=== PATIENT | female | born 1965 | race Caucasian/White ===

== ENCOUNTER 2017-03-17 23:33 | Inpatient (IN) | payer MEDICARE, MEDICAID ==
[~2017-03-17] VITALS: Ht 170.2 cm; Wt 86.0 kg
--- NOTE | ~2017-03-17 | HP ---
PATIENT'S NAME: SHARON HURTADO AGE: 51 Y [address] ROOM: [place] [address] LOCATION: GPCU ADMIT DATE: 03/18/2017 History & Physical DISCHARGE DATE: FAMILY PHYSICIAN: NENA VALIENTE ATTENDING PHYSICIAN: LLOYD JONES DATE OF SERVICE: CHIEF COMPLAINT: Diffuse abdominal pain, insomnia, nausea, runny nose, diaphoresis, insomnia, loose stool, and vomiting 3 days after stopped taking opioids. HISTORY OF PRESENT ILLNESS: This is a 51-year-old female, who has a long-term dependency on opioid and benzodiazepine, who says that last time she took her opioid, which is oxycodone/acid acetaminophen 7.5/325-mg tablet 3 times a day, and the last time she took it was this Tuesday, which was about 4 days ago. She ran out of the opioid at home at that time. She also chronically takes zolpidem 10 mg p.o. daily and also clonazepam 1 mg 3 times a day. Last time she took zolpidem was 2 days ago. The last time she took the clonazepam was 1 day ago. The story is that roughly for the last few days, the patient has been complaining of diffuse vague abdominal pain, insomnia, nauseous, runny nose, diaphoresis, and loose stools and today she started vomiting about 20 times per day according to the patient. The patient denies any fever, chills, chest pain, shortness of breath, or any other symptoms. Because of these symptoms, the patient went to outside facility for evaluation, which in return the patient was referred here for further care. REVIEW OF SYSTEMS: As mentioned in the history of present illness. All other systems were reviewed and were negative except those mentioned in the history of present illness. PAST MEDICAL HISTORY: The patient reported history of the followin. Crohn disease. 2. Ulcerative colitis. 3. Depression. 4. Anxiety. 5. PTSD. 6. Seizure. 7. History of ovarian cancer, status post chemotherapy and radiation. 8. History of right upper extremity DVT. PATIENT'S NAME: SHARON HURTADO AGE: 51 Y [address] ROOM: [place] [address] LOCATION: GPCU ADMIT DATE: 03/18/2017 History & Physical DISCHARGE DATE: FAMILY PHYSICIAN: PHYSICIAN, NO ATTENDING PHYSICIAN: LLOYD JONES 9. Reported history of Factor V Leiden mutation, but she is not on any blood thinner at home. 10. Reported history of myocardial infarction 3 times, the most recent one was back in April 2016. When questioned, the patient cannot really give a clear history about how did it happen and she denies ever having any cardiac catheterization and denies any stents, and when asked about how she was treated, she has no idea. ALLERGIES: ASPIRIN CAUSES GI UPSET, CINNAMON CAUSES RASH; LATEX CAUSES ANAPHYLAXIS, EXTENDED USE OF MORPHINE CAUSES HALLUCINATION, PENICILLIN UNKNOWN REACTION, SULFA ANTIBIOTICS CAUSES ANAPHYLAXIS, REMICADE CAUSES ANAPHYLAXIS, HUMIRA CAUSES GI UPSET, NSAID CAUSES GI UPSET. SOCIAL HISTORY: The patient is an active cigarette smoker of the electronic cigarette daily, unknown how much quantity, but she has been smoking for many years. She denies any alcohol or any illegal drug use. PAST SURGICAL HISTORY: 1. Cholecystectomy. 2. Tonsillectomy. 3. Tumor of the left shoulder removal in the past. 4. Tubal ligation. FAMILY HISTORY: Father from myocardial infarction at old age. Mother from ovarian cancer. PHYSICAL EXAMINATION: VITAL SIGNS: Temperature 98.5, heart rate 69, blood pressure 138/87, respirations 15, saturation 100% on room air. GENERAL APPEARANCE: The patient is alert and oriented x3, in no acute distress. HEENT: Pupils equally round and reactive to light. Extraocular muscles intact. Nasal turbinates are normal bilaterally. Moist oral mucosa. NECK: No JVD. CARDIOVASCULAR: Regular rate and rhythm. Normal S1, S2. No murmur. No rubs. No gallops. RESPIRATORY: Clear to auscultation. Chest wall nontender to palpation. ABDOMEN: Obese, soft, mildly tender diffusely to palpation. No abdominal rigidity. No mass. Bowel sounds are present. No ascites. EXTREMITIES: No edema in upper or lower extremities. SKIN: No ulcer. No rash. No cyanosis. NEUROLOGICAL: Grossly nonfocal. PATIENT'S NAME: SHARON HURTADO AGE: 51 Y [address] ROOM: [address] [address] LOCATION: GPCU ADMIT DATE: 03/18/2017 History & Physical DISCHARGE DATE: FAMILY PHYSICIAN: PHYSICIAN, NO ATTENDING PHYSICIAN: LLOYD JONES LABORATORY DATA: Lactic acid 1.8, white blood cells 11.3, hemoglobin 11.5, hematocrit 36.4, platelets 621, glucose 90, BUN 7, creatinine 1.7, sodium 141, potassium 4.1, chloride 111, CO2 of 21, calcium 8.7, total protein 7.8, albumin 2.9, AST 28, ALT 18, alkaline phosphatase 226, total bilirubin 0.2, anion gap 13.1, globulin 4.9, GFR 32, INR 1.01, PTT 34, CRP 1.4, procalcitonin less than 0.05. IMAGING STUDIES: CT of the abdomen and pelvis without contrast on admission based on the preliminary report showed moderate hiatal hernia and prior cholecystectomy. Normal bowel. Normal kidneys. No other acute or chronic abnormality. This is a preliminary report. EKG on admission on February 15, 2017, at 8:46 p.m. from the outside facility shows sinus rhythm, heart rate of 84 beats per minutes and QRS of 76 milliseconds, MN of 136 milliseconds, QTc of 453 milliseconds. No acute ischemic changes. ASSESSMENT AND PLAN: 1. Regarding her multiple symptoms including abdominal pain, insomnia, nausea, loose stool, runny nose, diaphoresis secondary to opioid withdrawal symptoms: The plan will be to treat her with opioid withdrawal protocol. Per up to date, we will be using p.o. methadone and IM phenergan p.r.n., p.o. Protonix, p.o. clonidine, IV fluids, and tapered dose of the p.o. methadone. In order to prevent benzodiazepine withdrawal, we will give her p.o. Valium standing dose with holding parameters. Eventually, the plan will be to taper the methadone and Valium back to her home regimen once she is over the period of the opioid withdrawal. Please follow up with the up-to-date regimen for the tapering regimen. Further plan will depend on clinical course. 2. Regarding her acute kidney injury: This is from the nausea and vomiting, and loose stool. We will treat her with p.o. loperamide p.r.n. and IV fluids. Encourage oral intake with cardiac diet. 3. Regarding her reported history of myocardial infarction and Factor V Leiden mutation: Story is not clear. The patient cannot give any details. The patient is not on any cardiac medication and also not on any medication for blood thinner. I highly doubt if this is accurate. The patient kept telling me that she takes niacin for blood thinner, which does not make sense to me. Patient does not remember who is her PCP. Currently, the patient denies any chest pain and there is no shortness of breath. EKG is also normal without any finding of acute or chronic ischemia. 4. Regarding her depression: Continue the home medication for depression. 5. Regarding her anxiety: Continue the Valium as mentioned before. PATIENT'S NAME: SHARON HURTADO AGE: 51 Y [address] ROOM: [place] [address] LOCATION: GPCU ADMIT DATE: 03/18/2017 History & Physical DISCHARGE DATE: FAMILY PHYSICIAN: PHYSICIAN, NO ATTENDING PHYSICIAN: LLYOD JONES 6. Regarding her reported history of Crohn's disease and ulcerative colitis: CT abdomen and pelvis did not show any inflammation of the colon. However, please follow up with official report in the morning. Further plan will depend on clinical course. 7. Regarding her hiatal hernia: We will start her on the Protonix 40 mg daily. 8. She is a full code. 9. DVT prophylaxis will be with subcu Lovenox. Time spent in care on the day of admission 60 minutes, where 40 minutes of the time was spent with the patient on counseling by going over the plan of care with the patient and addressing meaning of the question and concern that she had to her satisfaction. The remainder of the time was spent on interview and physical examination and also on chart review. Further plan will depend on clinical course. LLOYD JONES MD CC/modl /[id number] D: 8 T: HISTORY & PHYSICAL
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
--- NOTE | ~2017-03-17 | DS ---
PATIENT'S NAME: SHARON HURTADO [facility] AGE: 51 Y [address] ROOM: [id number] [place], [place] [address] LOCATION: GPCU ADMIT DATE: 03/18/2017 Discharge Summary DISCHARGE DATE: 03/23/2017 FAMILY PHYSICIAN: PHYSICIAN, NENA ATTENDING PHYSICIAN: Arcenio Gottlieb DISCHARGE DIAGNOSES: 1. Benzo/opiate withdrawal. 2. Posttraumatic stress disorder/anxiety/depression. 3. History of seizures. 4. Chronic abdominal pain. HOSPITAL COURSE: Please refer to admitting history and physical as dictated by Dr. Gottlieb. Briefly, the patient was admitted to [facility] with diffuse abdominal pain, insomnia, nausea, loose stools and vomiting 3 days after stopping her opioids. CT scan of her abdomen was performed upon admit, which showed a moderate-size hiatal hernia, surgically absent gallbladder, vascular calcifications at the abdominal aorta. No free air, with no findings of bowel obstruction. Due to her opiate withdrawal, she was placed on a methadone taper, which was completed prior to her discharge. Lovenox was used for DVT prophylaxis. She was continued on Tylenol for pain. Her home Klonopin dose was discontinued as well as her Zanaflex and Neurontin. She did have a right cheek facial lesion, which she was started on Bactroban ointment for. Psychiatry was asked to come and see her, given her diagnoses of PTSD, anxiety and depression. Dr. Galvin, did not see any reason to prescribe medications at this point. Due to her history of seizures and her taper of Klonopin, we did ask Neurology to see her. It is recommended that we continue to taper her Valium and she should follow up with a primary care provider. She continued to have pain throughout her stay. It was recommended that she continue Zofran as needed for her chronic abdominal pain and nausea. Her diarrhea had improved, she only had 2 stools during her hospitalization. On 03/23/2017, the patient's vital signs were stable. She was tolerating a regular diet. She was tapered off the methadone and continued on a Valium taper. It was recommended that she be seen by her primary care provider in 5 days. LABORATORY DATA: Sodium 141 to 144, potassium 3.6 to 4.1, calcium 7.9, BUN 7- 10, creatinine 1.7 on admit, 1.4 prior to discharge. AST 29, ALT 16, phos 4.6. GFR 32 on admit, 40 prior to discharge. Mag 1.7. CRP 1.44. Vitamin B12 549. Folate 3.5, TSH 2.730. WBCs 11.3 on admit, 10.5 prior to discharge. Hemoglobin 9.2 to 11.5, hematocrit 30.7 to 36.4, platelets 359. ESR 65. Procalcitonin less than 0.05. Urine leukocytes 25, nitrites negative, blood 10, bacteria few. PATIENT'S NAME: SHARON HURTADO [facility] AGE: 51 Y [address] ROOM: [place] [address] LOCATION: GPCU ADMIT DATE: 03/18/2017 Discharge Summary DISCHARGE DATE: 03/23/2017 FAMILY PHYSICIAN: NENA VALIENTE ATTENDING PHYSICIAN: Arcenio Gottlieb Radiology Reports: CT scan of the abdomen; please see hospital course. DISCHARGE INSTRUCTIONS: Diet: Regular. Activity: As tolerated. No driving until cleared. Followup Appointment: With primary care provider in 5 days. The patient requested an appointment at [facility], this was arranged with Dr. Blackwell, on Tuesday03/28/2017. ` DISCHARGE MEDICATIONS: 1. Valium 2.5 mg p.o. 3 times daily until 03/23/2017 at 2201 hours. Then Valium 2.5 mg p.o. twice daily for 2 days, then Valium 2.5 mg p.o. daily for 3 days, then stop. 2. Benadryl 50 mg p.o. daily p.r.n. 3. Cymbalta 120 mg p.o. daily p.r.n. 4. Bactroban to orbital lesion x7 days. 5. Nicotine patch 21 mg transdermal daily. 6. Trazodone 200 mg p.o. at bedtime. 7. Ambien 10 mg p.o. at bedtime p.r.n. insomnia. 8. Tylenol 1000 mg p.o. every 4 hours as needed for pain. 9. Zofran 8 mg p.o. q.8 hours p.r.n. nausea. 10. Imodium 2 mg p.o. as needed for diarrhea. 11. Zantac 150 mg p.o. daily. Thank you for allowing us to participate in the care of this patient as she has been hospitalized at [facility]. JAMES TALBERT APRN FOR MD LIDIA HUTSON/modl /[id number] CC: Roxanne Blackwell MD d: 03/25/17 0222 t: 03/29/17 1653, DISCHARGE SUMMARY
[2017-03-18] MEDS ORDERED: KLONOPIN1 MG PO (01:25)
[2017-03-18] MEDS ORDERED: CYMBALTA60 MG PO (01:26)
[2017-03-18] MEDS ORDERED: ZOFRAN8 MG PO (01:27)
[2017-03-18] MEDS ORDERED: PHENERGAN25 M1 PO (01:27)
[2017-03-18] MEDS ORDERED: DESYREL100 MG PO (01:28)
[2017-03-18] MEDS ORDERED: AMBIEN10 MG PO (01:30)
[2017-03-18] MEDS ORDERED: IMODIUM A-D2 M1 PO (01:31)
[2017-03-18] MEDS ORDERED: BENADRYL50 MG PO (01:32)
[2017-03-18] MEDS ORDERED: ZANAFLEX4 MG PO (01:32)
[2017-03-18] MEDS ORDERED: ZANTAC150 MG PO (01:33)
[2017-03-18] MEDS ORDERED: TYLENOL EXTRA500 MG PO (01:33)
[2017-03-18 01:54] LABS: BASOPHIL # 0.1 K/uL (0.0-0.2); BASOPHIL % 0.4 %; EOSINOPHIL % 0.2 %; HEMATOCRIT 36.4 % (33.0-46.0); HEMOGLOBIN 11.5 g/dL (10.0-15.0); IMMATURE GRANULOCYTE # 0.2 K/uL (0.0-0.3); IMMATURE GRANULOCYTE % 1.9 %; LYMPHOCYTE # 2.5 K/uL (0.8-4.0); MCH 24.7 pg (27.0-34.0); MCHC 31.6 gm/dL (32.0-36.5); MCV 78.1 fl (83.0-98.0); MONOCYTE # 0.8 K/uL (0.0-1.0); MONOCYTE % 7.2 %; MPV 9.8 fl (9.4-12.4); NEUTROPHIL # (ANC) 7.7 K/uL (1.8-7.8); NEUTROPHIL % 68.3 %; NRBC % 0 /100WBC (0-0.00); PLATELET COUNT 621 K/uL (150-450); RBC 4.66 M/uL (3.50-5.50); RDW-CV 19.3 % (11.9-14.6); WBC 11.3 K/uL (4.0-11.0)
[2017-03-18 02:04] LABS: INR - (THERAPEUTIC) 1.01 (0.92-1.07); PROTIME 10.6 SECONDS (9.8-11.4); PTT 34 SECONDS (25-32)
[2017-03-18 02:14] LABS: ALBUMIN 2.9 gm/dL (3.5-5.0); ALK PHOS 226 IU/L (33-138); ALT 18 IU/L (12-78); ANION GAP 13.1 (10.0-19.0); AST 28 IU/L (10-40); BLOOD UREA NITROGEN 7 mg/dL (6-24); CALCIUM 8.7 mg/dL (8.5-10.5); CHLORIDE 111 mMol/L (96-110); CO2 21 mMol/L (22-32); CREATININE 1.7 mg/dL (0.5-1.1); ESTIMATED GFR (MDRD EQUATION) 32; POTASSIUM 4.1 mMol/L (3.7-5.1); SODIUM 141 mMol/L (135-145); TOTAL BILIRUBIN 0.2 mg/dL (0.0-1.5); TOTAL PROTEIN 7.8 g/dL (6.0-8.4)
--- NOTE | 2017-03-18 04:27 | NUR ---
Patient arrived from [facility] via ambulance. Accompanied by spouse. Patient has been experiencing N/V and abdominal pain for a couple of days. Stated she has been "out of medications for a couple days". Patient also states she "failed pain contract with [facility] so they refered me here." The patient has an extensive health history. Depression, anxiety, PTSD, GERD, ulcerative colitsis, crohns, factor 5 with history of DVTs, and then some. Please refer to Data Base 1 for the entire list. She also is allergic to nsaids, sulfa, penicillins, cinnimon, and latex. Please refer to [employer] for more specific allergies. Full code. Her advanced directive is with her daughter in [place].
--- NOTE | 2017-03-18 04:39 | NUR ---
Significant Event: A&Ox3, VSS on room air. Patient complains of right lower quad abdominal pain and nausea. Rates pain as 7/10. Transfers with family assist/1PA to bathroom. Encouraged to use call light to have nurse help with transfers. Normal Saline at 100ml/hr into right hand IV with no complications. Patient ate jello and drinking tea without nausea/vomiting. Follow up: continue with plan of care
[2017-03-18 06:07] LABS: HEMATOCRIT 33.8 % (33.0-46.0); HEMOGLOBIN 10.6 g/dL (10.0-15.0); MCH 24.4 pg (27.0-34.0); MCHC 31.4 gm/dL (32.0-36.5); MCV 77.7 fl (83.0-98.0); MPV 9.7 fl (9.4-12.4); RBC 4.35 M/uL (3.50-5.50); RDW-CV 19.2 % (11.9-14.6)
[2017-03-18 06:34] LABS: ALBUMIN 2.6 gm/dL (3.5-5.0); ALK PHOS 204 IU/L (33-138); ALT 17 IU/L (12-78); ANION GAP 14.6 (10.0-19.0); AST 26 IU/L (10-40); BLOOD UREA NITROGEN 7 mg/dL (6-24); CALCIUM 8.5 mg/dL (8.5-10.5); CHLORIDE 109 mMol/L (96-110); CO2 22 mMol/L (22-32); CREATININE 1.6 mg/dL (0.5-1.1); ESTIMATED GFR (MDRD EQUATION) 34; POTASSIUM 3.6 mMol/L (3.7-5.1); SODIUM 142 mMol/L (135-145); TOTAL BILIRUBIN 0.2 mg/dL (0.0-1.5); TOTAL PROTEIN 7.1 g/dL (6.0-8.4)
[2017-03-18 07:36] LABS: BILIRUBIN URINE NEGATIVE (NEGATIVE); BLOOD URINE 10 /UL (NEGATIVE); COLOR URINE YELLOW (YELLOW); GLUCOSE URINE NEGATIVE (NEGATIVE); KETONE URINE 5 mg/dL (NEGATIVE); LEUKOCYTES URINE 25 /UL (NEGATIVE); NITRITE URINE NEGATIVE (NEGATIVE); PROTEIN URINE 15 mg/dL (NEGATIVE); TURBIDITY URINE 1+ (CLEAR); UROBILINOGEN URINE NORMAL (NORMAL)
[2017-03-18 07:46] LABS: BACTERIA URINE FEW (NEGATIVE); RBC URINE RARE #/HPF (NEGATIVE); WBC URINE RARE #/HPF (NEGATIVE)
[2017-03-18] MEDS ORDERED: NEURONTIN300 MG PO (10:21)
[2017-03-18] MEDS ORDERED: PERCOCET 7.5-31 EACH PO (10:22)
--- NOTE | 2017-03-18 11:30 | NUR ---
Introduced self and care management services to patient. Lives in [place] with significant other. Says he helps her at home. Denies concerns for me when I was in the room about going home on discharge or needing anything. Asked me to get her a patient compliment form so she could compliment nurses who care for her. Got her a speakup form and told her she can use that for compliments as well. Asks me to write my name on the form so she can compliment me. Told her that was very nice of her. About an hour later got a call from her telling me to come back to her room because she needed me to straighten out her meds. Asked her what she needed and she said she needs nausea medicine. Told her she needs to talk with her nurse about that and she said no, she wants me to come to her room now to straighten them out for aftercare. Told her that is a conversation she needs to have with her physician, and with her nurse as well. Explained I can't prescribe medicine and she needs to communicate directly with her physician what she wants when ready for discharge. She says oh, okay. Then asks me if I can get her a walker. Explained to her that [facility] no longer bill Medicare for walkers so we can ask the doctor to write her a script for one and she can get one at a [facility] company and bill it to Medicare herself, or I can provide her with information on where she can borrow a walker. She says she has one but its not very good. Asked her where she got it and she said in [place]. Asked her when she got it and she said 6 or 7 years ago. Asked if Medicaid would pay for one. Told her they may and that we will ask the physician to write her a script for a walker she can take on discharge. She says okay. Will continue to follow. Will put note on chart for physician to write a script for a walker.
--- NOTE | 2017-03-18 15:50 | NUR ---
Significant Event: PT A&O x3. VSS, on room air. Nausea well controlled with zofran and phenergan. PT up ad bhargav in room. IV patent to R)hand. Mininal appetite. Voiding without difficulties. Follow up:
--- NOTE | 2017-03-19 04:35 | NUR ---
Significant Event: PATIENT IS ALERT AND OREINTED X3. PLEASANT. FLIGHTING THOUGHTS. VSS. ON ROOM AIR. HR IN LOW 100'S. ZOFRAN AT 2210. Follow up:
--- NOTE | 2017-03-19 19:24 | NUR ---
Patient complaining of nausea and a headache this AM. No complaints of nausea again till 1730. PIV assess lost (clotted off) @ 1430. 6 attemps made by clinic charge nurse AM and PM and flight RN this afternoon. Fluids d/c'd and K-pad ordered for back pain. Patient did not eat breakfast but did eat full lunch. Patint had assistance to stand and walked self to bathroom to void.
[2017-03-20 03:53] LABS: BASOPHIL # 0.1 K/uL (0.0-0.2); BASOPHIL % 0.7 %; EOSINOPHIL # 0.3 K/uL (0.0-0.5); EOSINOPHIL % 3.2 %; HEMATOCRIT 30.7 % (33.0-46.0); HEMOGLOBIN 9.2 g/dL (10.0-15.0); IMMATURE GRANULOCYTE # 0.1 K/uL (0.0-0.3); LYMPHOCYTE # 2.7 K/uL (0.8-4.0); LYMPHOCYTE % 25.7 %; MCH 24.4 pg (27.0-34.0); MCV 81.4 fl (83.0-98.0); MONOCYTE # 0.7 K/uL (0.0-1.0); MONOCYTE % 7.1 %; MPV 9.4 fl (9.4-12.4); NEUTROPHIL # (ANC) 6.5 K/uL (1.8-7.8); NEUTROPHIL % 62.3 %; NRBC % 0 /100WBC (0-0.00); RBC 3.77 M/uL (3.50-5.50); RDW-CV 19.8 % (11.9-14.6); WBC 10.5 K/uL (4.0-11.0)
[2017-03-20 03:54] LABS: PLATELET COUNT 359 K/uL (150-450)
[2017-03-20 04:14] LABS: ALBUMIN 2.3 gm/dL (3.5-5.0); ANION GAP 11.7 (10.0-19.0); CALCIUM 7.9 mg/dL (8.5-10.5); CREATININE 1.4 mg/dL (0.5-1.1); MAGNESIUM 1.7 mg/dL (1.8-2.6); PHOSPHORUS 4.6 mg/dL (2.5-4.9); POTASSIUM 3.7 mMol/L (3.7-5.1); TOTAL BILIRUBIN 0.2 mg/dL (0.0-1.5); TOTAL PROTEIN 6.1 g/dL (6.0-8.4)
--- NOTE | 2017-03-20 05:10 | NUR ---
Significant Event: Follow up:PATIENT A/OX3,MEX4, AMBULATES TO BATHROOM, COMPLAINED OF NAUSEA X2, NO IV ACCESS, TACHYCARDIC
--- NOTE | 2017-03-20 05:14 | NUR ---
Significant Event: Follow up:PATIENT A0X3, MEX4 AMBULATES TO BATHROOM, GOOD URINARY OUTPUT, NO IV ACCESS, TACHYCARDIC
--- NOTE | 2017-03-20 19:11 | NUR ---
Significant Event: Patient remains pleasant and cooperative. VSS although tachy at times. Ambulated in the hallway without problems. Up to BR with SBA. Passing gas and positive bowel sounds, no BM this shift. Promethazine IM given once. Tylenol also given for headache. Plan is to reduce methadone dose to 10mg/day starting tomorrow. Patient denies having opiod withdrawal or dependence. Valium remains TID. When she has the promethazine she becomes very drowsy, states she needs it for nausea. Has eaten well this shift. Follow up:
--- NOTE | 2017-03-21 03:23 | NUR ---
Pt A&Ox4, but makes confused statements at times. VSS on RA. Sinus tach with rates in 100s-110s. Denies abdominal pain throughout shift. Reports mild nausea at times. Phenergan IM given x1. SBA. Voiding and taking PO without issue. Cooperative with cares.
--- NOTE | 2017-03-21 18:54 | NUR ---
Significant Event: PT HAVING MORE PAIN TODAY, WITH DECREASE METHADONE. TYLENOL GIVEN LAST 0 AND PROMETHAZINE IM. HR UP TO 120S. PT S/O HERE WITH HER TODAY. PSYCH CONSULTED. Follow up:HOME TOMORROW?
--- NOTE | 2017-03-22 03:32 | NUR ---
Significant Event: A&Ox3, VSS on room air. Order for no IV access. Patient voices concerns with tapering doses of medications, MDs aware. Up ad-bhargav in room. Phenergan injection for nausea at HS. Patient picks at sore under right eye frequently, encouraged to leave alone. Follow up: continue with plan of care.
--- NOTE | 2017-03-22 16:17 | NUR ---
Significant Event: ALERT AND ORIENTED X3. UP INDEPENDENTLY IN ROOM. NO IV ACCESS PER MD. HR'S 100'S-110'S. OTHER VSS. C/O PAIN TO ABDOMEN AND HEADACHE. TYLENOL GIVEN X1. ZOFRAN PO X1 GIVEN. NEURO CONSULT, RADHA VISITED WITH PATIENT, TELE NEURO WILL CONSULT TOMORROW. Follow up:
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
--- NOTE | 2017-03-23 03:15 | NUR ---
Significant Event: A&Ox3, VSS on room air. Up independent in room, tripping hazards removed. Order for no IV access. Tylenol for pain, zofran and phenergan for nausea. Patient stated she was worried she would have a seizure so O2 sat prob applied per patient request. Patient rested well. Follow up: D/C today.
--- NOTE | 2017-03-23 16:56 | NUR ---
Significant Event: Patient is A/O x3, VSS. Pt has been in bed all day. Refused suggestion of repositioning. Appetite has been poor. Complaints of nausea. Relief with Zofran and Phenergan administration. Consistently rating pain 6-7 in abdominal area. Pt complaint of headache. Non-pharmaceutical interventions offered and accepted with some relief. Plans to d/c this evening.
[2017-03-23] MEDS ORDERED: VALIUM5 MG PO ×2 (18:02→18:03)
[2017-03-23] MEDS ORDERED: DIAZEPAM5 MG PO (18:07)
[2017-03-23] MEDS ORDERED: BACTROBAN 2% OI22 GM TOP (18:20)
[2017-03-23] MEDS ORDERED: NICOTINE PATCH1 EAC4 TRANS (18:23)
--- NOTE | 2017-03-24 01:35 | NUR ---
Patient was discharged to home at 2047 per private auto and significant other. Walked out to [facility] by RN. On discharge patient was alert and oriented x 3. Denies numbness or tingling. Moved extremities spontaneously and to command with equal strength. Stated pain was tolerable. VSS. ST. Afebrile. On room air and lungs clear. Scattered red spots. No IV access. Significant other at bedside. Patient signed education papers and verbalized understanding. Patient handed her handouts and prescriptions to significant other. All belongings sent with patient. Thanked staff for cares performed. All bedtime medications given to patient prior to discharge per patient request.
== END 2017-03-23 20:48 | disposition disaster alternative care site (69) | DRG 897 ==
LOC: GPCU 03-18 00:04
PROVIDERS: Internal Medicine; ADMIT Internal Medicine
DX: F19.939 Other psychoactive substance use, unspecified with withdrawal, unspecified (principal); N17.9 Acute kidney failure, unspecified; N18.3 Chronic kidney disease, stage 3 (moderate); R56.9 Unspecified convulsions; L03.211 Cellulitis of face; F32.9 Major depressive disorder, single episode, unspecified; F41.9 Anxiety disorder, unspecified; F43.10 Post-traumatic stress disorder, unspecified; K44.9 Diaphragmatic hernia without obstruction or gangrene
CPT/HCPCS: J1650; J2405; J2550; J7030; Q0162